=== PATIENT | female | born 1965 | race African-American/Black ===

== ENCOUNTER 2023-01-26 12:10 | Emergency (ER) | payer MEDICAID, OTHER ==
[2023-01-26] MEDS ORDERED: Ketorolac Tromethamine 30 MG/ML VIAL ONE (12:38)
== END 2023-01-26 13:39 | disposition home or self-care (01) ==
LOC: ERS 12:10
DX: M19.031 Primary osteoarthritis, right wrist (principal); F17.210 Nicotine dependence, cigarettes, uncomplicated
CPT/HCPCS: 93005; 96372; J1885